=== PATIENT | female | born 1985 ===

== ENCOUNTER 2017-02-19 21:51 | Emergency (ER) | payer OTHER ==
[2017-02-19 21:51] VITALS: BMI 34.3
[2017-02-19 21:59] VITALS: BP 126/76; PULSE 77; RESP 16; TEMP 98.4; O2SAT 99
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
[2017-02-19] MEDS ORDERED: Naproxen 500 MG TAB PO ONE (23:21)
[2017-02-19] MEDS ORDERED: Naproxen 500 MG TAB PO STA (23:32)
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
== END 2017-02-19 23:33 | disposition home or self-care (01) ==
LOC: H.ER 21:51
DX: S16.1XXA Strain of muscle, fascia and tendon at neck level, initial encounter (principal); V43.52XA Car driver injured in collision with other type car in traffic accident, initial encounter; Y92.410 Unspecified street and highway as the place of occurrence of the external cause; R42 Dizziness and giddiness

== ENCOUNTER 2017-02-21 23:47 | Emergency (ER) | payer OTHER ==
[2017-02-21 23:47] VITALS: BMI 34.3
[2017-02-22 00:01] VITALS: BP 109/63; PULSE 68; RESP 14; TEMP 98.6; O2SAT 100
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
== END 2017-02-22 02:55 | disposition home or self-care (01) ==
LOC: H.ER 23:47
DX: M54.5 Low back pain (principal); M54.2 Cervicalgia; S39.012A Strain of muscle, fascia and tendon of lower back, initial encounter; V43.52XA Car driver injured in collision with other type car in traffic accident, initial encounter; Y92.410 Unspecified street and highway as the place of occurrence of the external cause